=== PATIENT | male | born 1990 | race Two or more races ===

== ENCOUNTER 2022-04-05 18:06 | Emergency (ER) | payer SELFPAY ==
[~2022-04-05] VITALS: Ht 172.7 cm; Wt 76.0 kg
[2022-04-05] MEDS ORDERED: KETOROLAC 60MG/2ML VIAL IM ONE (18:30)
[2022-04-05] MEDS ORDERED: T3 PO (20:16)
[2022-04-05 20:41] VITALS: BP 137/81
== END 2022-04-05 20:42 | disposition home or self-care (01) ==
LOC: ER 18:06
DX: S49.81XA Other specified injuries of right shoulder and upper arm, initial encounter (principal); V09.20XA Pedestrian injured in traffic accident involving unspecified motor vehicles, initial encounter; Y93.01 Activity, walking, marching and hiking; Y92.488 Other paved roadways as the place of occurrence of the external cause
CPT/HCPCS: 73030; 96372; 99283; J1885